=== PATIENT | male | born 1955 | race Caucasian/White ===

== ENCOUNTER 2024-12-26 06:47 | Day surgery (SDC) | payer OTHER ==
[2024-12-14 11:04] VITALS: BMI 23.3
[2024-12-26 09:39] VITALS: TEMP 98
[2024-12-26 10:26] VITALS: BP 127/70; PULSE 67; RESP 14
== END 2024-12-26 10:46 | disposition home or self-care (01) ==
LOC: JASU-ENDO 06:47
PROVIDERS: ATTEND Internal Medicine Gastroenterology
PROC: 0DBH8ZX Excision of Cecum, Via Natural or Artificial Opening Endoscopic, Diagnostic (ICD-10-PCS; 2024-12-26)
PROC: 0DB98ZX Excision of Duodenum, Via Natural or Artificial Opening Endoscopic, Diagnostic (ICD-10-PCS; 2024-12-26)
PROC: 0DB78ZX Excision of Stomach, Pylorus, Via Natural or Artificial Opening Endoscopic, Diagnostic (ICD-10-PCS; 2024-12-26)
PROC: 0DB48ZX Excision of Esophagogastric Junction, Via Natural or Artificial Opening Endoscopic, Diagnostic (ICD-10-PCS; 2024-12-26)
PROC: 3E0H8GC Introduction of Other Therapeutic Substance into Lower GI, Via Natural or Artificial Opening Endoscopic (ICD-10-PCS; principal; 2024-12-26 09:00)
DX: Z12.11 Encounter for screening for malignant neoplasm of colon (principal); K64.8 Other hemorrhoids; K57.30 Diverticulosis of large intestine without perforation or abscess without bleeding; K63.5 Polyp of colon; K21.00 Gastro-esophageal reflux disease with esophagitis, without bleeding; K44.9 Diaphragmatic hernia without obstruction or gangrene; K29.40 Chronic atrophic gastritis without bleeding; K31.A11 Gastric intestinal metaplasia without dysplasia, involving the antrum; K29.80 Duodenitis without bleeding; Z86.0100 Personal history of colon polyps, unspecified
CPT/HCPCS: 88305-TC; 88342-TC